=== PATIENT | male | born 1955 | race Two or more races ===

== ENCOUNTER 2022-03-05 13:47 | Emergency (ER) | payer OTHER ==
[~2022-03-05] VITALS: Ht 165.1 cm; Wt 143.6 kg
[2022-03-05] MEDS ORDERED: ACE3T PO (16:56)
[2022-03-05] MEDS ORDERED: ONDANSETRON ODT 4 MG TAB PO ONE (17:00)
[2022-03-05] MEDS ORDERED: HYDROcodone-ACET 5/325MG TAB PO ONE (17:00)
[2022-03-05 17:16] VITALS: BP 140/66
== END 2022-03-05 17:25 | disposition home or self-care (01) ==
LOC: ER 13:47
DX: S90.112A Contusion of left great toe without damage to nail, initial encounter (principal); Z90.49 Acquired absence of other specified parts of digestive tract; Z79.899 Other long term (current) drug therapy; W22.8XXA Striking against or struck by other objects, initial encounter; Y93.89 Activity, other specified; Y92.89 Other specified places as the place of occurrence of the external cause; Y99.8 Other external cause status
CPT/HCPCS: 73630; 99283; Q0162